=== PATIENT | female | born 1955 | race Caucasian/White ===

== ENCOUNTER → 2018-03-25 | Outpatient (CLI) | payer OTHER ==
[~2018-03-25] MED LIST: ALIGN4 MG PO; ALLEGRA PO; ASPIR 8181 MG PO; ATORVASTATIN CA10 MG PO; CALCIUM + D PO; DESONATE TOP; DETROL LA4 MG PO; LEVOTHYROXINE PO; LEVOTHYROXINE88 MCG PO; LOSARTAN POTASS25 MG PO; MAGNESIUM OXID400 MG PO; METRONIDAZOLE GEL TOP; MULTI-VITAMIN1 EACH PO; MUPIROCIN22 GM TOP; NEXIUM20 MG PO; NEXIUM40 MG PO; PANTOPRAZOLE SO40 MG PO; TOLTERODINE TART2 MG PO; VITAMIN D2000 UNIT PO; mvi PO; tylenol PO
--- NOTE | 2018-03-26 13:39 | Diagnostic Imaging Report ---
#[id number] - MGSCRBIL #BILATERAL DIGITAL SCREENING MAMMOGRAM WITH CAD: 03/25/2018 CLINICAL: Routine screening. Comparison is made to exams dated: 03/13/2017 mammogram and 02/29/2016 mammogram - [facility]. Current study contains 4 films. There are scattered fibroglandular elements in both breasts. Current study was also evaluated with a Computer Aided Detection (CAD) system. There are benign calcifications in both breasts. No significant masses, calcifications, or other findings are seen in either breast. There has been no significant interval change. IMPRESSION: BENIGN There is no mammographic evidence of malignancy. A 1 year screening mammogram is recommended. The patient will be notified by letter of the results. Ar steve/adrian:03/26/2018 08:00:50 Bindery Assistant: Monique HINES(R)(M), [facility] letter sent: Compared to Prior B9 Mammogram BI-RADS: 2 Benign
== END ==
LOC: MAMMO 09:02
PROVIDERS: ATTEND Internal Medicine
DX: Z12.31 Encounter for screening mammogram for malignant neoplasm of breast (principal)
CPT/HCPCS: 77067

== ENCOUNTER 2018-09-01 10:55 | Emergency (ER) | payer OTHER ==
[~2018-09-01] VITALS: Ht 160 cm; Wt 77.6 kg
--- OUTSIDE RECORDS SUMMARY | 2018-09-01 10:59 | XMS REPORT | Encounter Summary ---
Author Organization Unknown Address [address] [place] [address] Phone [phone] Care Team Providers Care Coffee Brewer Name Role Phone Keith Rolon MD 3 [phone] Reason for Visit Medical Complaint Instructions 1. Elevated blood pressure elevated blood pressure: care instructions 2. Impacted cerumen of bilateral ears ofloxacin 0.3 % ear drops earwax blockage: care instructions 3. On examination - pulse rate - bradycardia Discussion Note I provided /reviewed healthwise handout Plan of Care Patient Instructions Take prescription as prescribed and f/u with PCP if symptoms persist or worsens within 5-7 days. Reminders Provider Appointments None recorded. Lab None recorded. Referral None recorded. Procedures None recorded. Surgeries None recorded. Imaging None recorded. Medications Name Start Date Denisa-D 12 Hour 60 mg-120 mg tablet,extended release TK 1 T PO BID aspirin atorvastatin 10 mg tablet dicyclomine 10 mg capsule Flucelvax Quad 5860-0563 (PF) 60 mcg (15 mcg x 4)/0.5 mL IM syringe losartan 25 mg tablet metronidazole 0.75 % topical gel APPLY A THIN LAYER TO THE AFFECTED AREA(S) BY TOPICAL ROUTE 2 TIMES PER DAY IN THE MORNING AND EVENING Nexium 20 mg capsule,delayed release ofloxacin 0.3 % ear drops INSTILL 10 DROPS (1.5 MG) INTO AFFECTED EAR(S) BY OTIC ROUTE 2 TIMES PER DAY pantoprazole 40 mg tablet,delayed release Synthroid 88 mcg tablet tolterodine 2 mg tablet tolterodine ER 2 mg capsule,extended release 24 hr Medications Administered None recorded. Vitals Height Weight BMI Blood Pressure 5 ft 3 in 165 lbs 29.2 kg/m2 (1) 148/96 mm[Hg] (2) 152/98 mm[Hg] Lab Results None recorded. Allergies Code Code System Name Reaction Severity Status Onset 94349 RxNorm Lisinopril Active Novocain Active Problems Name Status Onset Date Source Impacted Cerumen Active Encounter Procedures Date Name Performed by Removal of Adenoids Information not available Tonsillectomy Information not available Vaccine List None recorded. Social History Smoking Status Never Smoker Past Encounters 06/29/2017 Elevated Blood Pressure; Impacted Cerumen of Bilateral Ears; On Examination - Pulse Rate - Bradycardia [facility]AP[facility]: [address] [facility] , [place] [address], Ph. History of Present Illness Ear Complaint Reported By: Patient HPI: Location: bilateral. Quality: ears feel full/plugged, muffled. Severity: intermittent. Duration: intermittent. Context: no sick contacts, no recent swimming/water in ear, no exposure to second hand smoke, no head trauma, not grinding teeth, no recent air travel. Modifying factors: does not hurt to lie on, or pull on ear, does not hurt to chew. Associated Symptoms: no discharge from the ears, no hear ing loss, no nose/sinus problems, no ringing in the ears, no fever, no chills, no earache, no dizziness, no vertigo, no headache, no muscle aches, popping noise in the ears Review of Systems:ROS as noted in the HPI Review of Systems Basic Reported By: Patient Physical Exam Adult Basic, Adult Female Complete Reported By: Patient Constitutional: General Appearance: healthy-appearing, well-nourished, well-developed. Level of Distress: NAD. Ambulation: ambulating normally Zay-Rpde-Qogkv-Throat: Ears: no lesions on external ear, no outer ear tenderness, EACs clear, TMs clear, EAC occluded with cerumen, cerumen removed to visualize TM Lungs: Respiratory effort: no dyspnea, no tachypnea, no use of accessory muscles, no intercostal retractions. Auscultation: breath sounds normal Cardiovascular: Heart Auscultation: RRR, no murmurs
--- OUTSIDE RECORDS SUMMARY | 2018-09-01 10:59 | XMS REPORT ---
Author Author [facility] Address Unknown Phone Unavailable Care Team Providers Care Cupola Hoist Operator Name Role Phone MUKESH PEÑA Unavailable Unavailable Problems This patient has no known problems. Allergies, Adverse Reactions, Alerts This patient has no known allergies or adverse reactions. Medications This patient has no known medications. Results Test Description Test Time Test Comments Text Results Atomic Results Result Comments MAMMOGRAPHY DIGITAL SCR BILAT 2018-03-25 09:49:00 [place] [address] Patient Name: KARIS ACE MR #: [id number] : 1955 Age/Sex: 62/F Req #: [id number] Adm Physician: Ordered by: MUKESH PEÑA MD Report #: [id number] Location: MAMMO Room/Bed: Procedure: MG/MAMMOGRAPHY DIGITAL SCR BILAT Exam Date: 03/25/18 Exam Time: 905 REPORT STATUS: Signed #[id number] - MGSCRBIL #BILATERAL DIGITAL SCREENING MAMMOGRAM WITH CAD: 03/25/2018 CLINICAL: Routine screening. Comparison is made to exams dated: 03/13/2017 mammogram and 02/29/2016 mammogram - [facility]. Current study contains 4 films. There are scattered fibroglandular elements in both breasts. Current study was also evaluated with a Computer Aided Detection (CAD) system. There are benign calcifications in both breasts. No significant masses, calcifications, or other findings are seen in either breast. There has been no significant interval change. IMPRESSION: BENIGN There is no mammographic evidence of malignancy. A 1 year screening mammogram is recommended. The patient will be notified by letter of the results. Stacy steve/adrian:03/26/2018 08:00:50 Photograph Enlarger: Monique ESPINAL)(Gabrielle), [facility] letter sent: Compared to Prior B9 Mammogram BI-RADS: 2 Benign Dictated By: STACY SMITH DO 08 Transcribed By: ADRIAN on 03/26/18 08 COPY TO: MUKESH PEÑA MD MAMMOGRAPHY DIGITAL SCR BILAT [place] [address] Patient Name: KARIS ACE MR #: [id number] : 1955 Age/Sex: 61/F Req #: [id number] [facility] Physician: Ordered by: MUKESH PEÑA MD Report #: [id number] Location: MAMMO Room/Bed: Procedure: MG/MAMMOGRAPHY DIGITAL SCR BILAT Exam Date: 03/13/17 Exam Time: 1011 REPORT STATUS: Signed #[id number] - MGSCRBIL #BILATERAL DIGITAL SCREENING MAMMOGRAM WITH CAD: 03/13/2017 CLINICAL: Routine screening. Comparison is made to exams dated: 02/29/2016 mammogram, 02/25/2015 mammogram and 02/22/2014 mammogram - [facility]. Current study contains 4 films. There are scattered fibroglandular elements in both breasts. Current study was also evaluated with a Computer Aided Detection (CAD) system. There are benign calcifications in both breasts. No significant masses, calcifications, or other findings are seen in either breast. There has been no significant interval change. IMPRESSION: BENIGN There is no mammographic evidence of malignancy. A 1 year screening mammogram is recommended. The patient will be notified by letter of the results. Stacy steve/adrian:03/20/2017 08:15:29 Photograph Enlarger: Monique HINES(R)(M), [facility] letter sent: Compared to Prior B9 Mammogram BI-RADS: 2 Benign Dictated By: STACY SMITH DO 4 Transcribed By: ADRIAN on 03/20/17814 COPY TO: MUKESH PEÑA MD
--- OUTSIDE RECORDS SUMMARY | 2018-09-01 10:59 | XMS REPORT | Continuity of Care Document ---
Author Author [facility] Interface Address Unknown Phone Unavailable Problems Problem Status Onset Date Classification Date Reported Comments Source Elevated blood pressure 06/29/2017 Diagnosis 06/29/2017 [facility] Impacted cerumen of bilateral ears 06/29/2017 Diagnosis 06/29/2017 [facility] On examination - pulse rate - bradycardia 06/29/2017 Diagnosis 06/29/2017 [facility] Impacted Cerumen Problem 06/29/2017 [facility] Medications Medication Details Route Status Patient Instructions Ordering Provider Order Date Source 12 HR Fexofenadine hydrochloride 60 MG / Pseudoephedrine Hydrochloride 120 MG Extended Release Oral Tablet [Denisa-D] Denisa-D 12 Hour 60 mg- 120 mg tablet,extended release TK 1 T PO BID Active [facility] aspirin aspirin Active [facility] atorvastatin 10 MG Oral Tablet atorvastatin 10 mg tablet Active [facility] Dicyclomine Hydrochloride 10 MG Oral Capsule dicyclomine 10 mg capsule Active [facility] 0.5 ML influenza A virus A/ (H1N1) antigen 0.03 MG/ML / influenza A virus A/ (H3N2) antigen 0.03 MG/ML / influenza B virus B/ antigen 0.03 MG/ML / influenza B virus B/ antigen 0.03 MG/ML Prefilled Syringe [Flucelvax Quadrivalent 5459-5928] Flucelvax Quad 4261-2361 (PF) 60 mcg (15 mcg x 4)/0.5 mL IM syringe Active [facility] Losartan Potassium 25 MG Oral Tablet losartan 25 mg tablet Active [facility] Metronidazole 0.0075 MG/MG Topical Gel metronidazole 0.75 % topical gel APPLY A THIN LAYER TO THE AFFECTED AREA(S) BY TOPICAL ROUTE 2 TIMES PER DAY IN THE MORNING AND EVENING Active [facility] Esomeprazole 20 MG Delayed Release Oral Capsule [Nexium] Nexium 20 mg capsule,delayed release Active [facility] Ofloxacin 3 MG/ML Otic Solution ofloxacin 0.3 % ear drops INSTILL 10 DROPS (1.5 MG) INTO AFFECTED EAR(S) BY OTIC ROUTE 2 TIMES PER DAY Active [facility] pantoprazole 40 MG Delayed Release Oral Tablet pantoprazole 40 mg tablet,delayed release Active [facility] Levothyroxine Sodium 0.088 MG Oral Tablet [Synthroid] Synthroid 88 mcg tablet Active [facility] tolterodine tartrate 2 MG Oral Tablet tolterodine 2 mg tablet Active [facility] 24 HR tolterodine tartrate 2 MG Extended Release Oral Capsule tolterodine ER 2 mg capsule,extended release 24 hr Active [facility] Allergies, Adverse Reactions, Alerts Substance Category Reaction Severity Reaction type Status Date Reported Comments Source Lisinopril Allergy to substance 03/04/2014 [facility] Novocain Allergy to substance 03/04/2014 [facility] Immunizations Immunization Date Given Site Status Last Updated Comments Source Results Order Name Results Value Reference Range Date Interpretation Comments Source Vital Signs Vital Sign Value Date Comments Source Diastolic (mm Hg) 98 06/29/2017 [facility] Height 63 06/29/2017 [facility] Systolic (mm Hg) 152 06/29/2017 [facility] Weight 165 06/29/2017 [facility] Encounters Location Location Details Encounter Type Encounter Number Reason For Visit Attending Provider ADM Date DC Date Status Source CO - [id number]_CfgbublrHeri Dykes, [address] AW[address]: [address] [facility] [place] [address], Ph. [id number] Keith Dykes 06/29/2017 [facility] Procedures Procedure Code Date Perfomer Comments Source Removal of Adenoids 67869 [facility] Tonsillectomy [facility]
[2018-09-01] MEDS ORDERED: TETANUS/DIPHTHERIA TOX ADULT 0.5 ML SYR IM ONE (12:15)
--- NOTE | 2018-09-01 12:24 | NUR ---
PT RESTING, VITAL SIGNS STABLE, PT VOICES NO COMPLAINTS AT THIS TIME.
--- NOTE | 2018-09-01 12:33 | Diagnostic Imaging Report ---
Exam: Right ankle and foot 3 views each History: Pain Comparison: None. Findings: Transverse fracture of the distal fibula below the plafond without significant displacement. Transverse fracture of the fifth metatarsal base with no displacement. Soft tissue swelling. Impression: Ankle inversion injury with transverse fracture of the distal fibular tip and transverse fracture of the fifth metatarsal base, nondisplaced. Signed by: Dr. Sampson Wynne M.D. on 09/01/2018 12:29 PM
[2018-09-01] MEDS ORDERED: KETOROLAC TROME10 MG PO (13:12)
[2018-09-01 13:40] VITALS: BP 139/69
--- NOTE | 2018-09-01 13:47 | NUR ---
PT PLACED IN WALKING BOOT, WALKER TRAINING PT VERBALIZES UNDERSTANDING
== END 2018-09-01 13:43 | disposition home or self-care (01) ==
LOC: FSED 10:55
DX: S82.61XA Displaced fracture of lateral malleolus of right fibula, initial encounter for closed fracture (principal); S92.354A Nondisplaced fracture of fifth metatarsal bone, right foot, initial encounter for closed fracture; W19.XXXA Unspecified fall, initial encounter; Y92.488 Other paved roadways as the place of occurrence of the external cause; Z23 Encounter for immunization
CPT/HCPCS: 90714; 99283

== ENCOUNTER → 2019-03-26 | Outpatient (CLI) | payer OTHER ==
[~2019-03-26] MED LIST changes: +KETOROLAC TROME10 MG PO
== END ==
LOC: MAMMO 08:34
PROVIDERS: ATTEND Internal Medicine
DX: Z12.31 Encounter for screening mammogram for malignant neoplasm of breast (principal)
CPT/HCPCS: 77067

== ENCOUNTER → 2020-01-01 | Day surgery (SDC) | payer MEDICARE, OTHER ==
[2019-12-29 10:49] LABS: BASOPHILS # (AUTO) 0.1 (0.0-0.1); BASOPHILS % 1.6 % (0.0-1.0); EOSINOPHILS # (AUTO) 0.2 (0.0-0.4); EOSINOPHILS % 2.3 % (0.0-6.0); HEMATOCRIT 38.2 % (34.2-44.1); HEMOGLOBIN 12.1 g/dL (12.0-16.0); LYMPHOCYTES % 31.3 % (18.0-39.1); MEAN CORPUSCULAR HEMOGLOBIN 30.6 pg (28-32); MEAN CORPUSCULAR HGB CONC 31.7 g/dL (31-35); MEAN CORPUSCULAR VOLUME 96.5 fL (81-99); MONOCYTES # (AUTO) 0.5 (0.2-0.8); MONOCYTES % 7.3 % (4.4-11.3); NEUTROPHILS # (AUTO) 3.7 (2.1-6.9); NEUTROPHILS % 57.3 % (38.7-80.0); PLATELET COUNT 195 x10e3/uL (140-360); RED BLOOD COUNT 3.96 x10e6/uL (3.6-5.1); RED CELL DISTRIBUTION WIDTH 12.9 % (11.7-14.4)
[~2020-01-01] MED LIST changes: +BYSTOLIC10 MG PO; +COLESTIPOL HCL1 GM PO; +FENTANYL CITRATE/PF 100MCG/2 ML INJ ONE; +HYOSCYAMINE 0.125 MG TAB ONE; +KETAMINE HCL INJ 50 MG/ML 10 ML VIAL ONE; +MIDAZOLAM HCL 2 MG/2 ML VIAL ONE; +ONDASTERON PO; +OXYBUTYNIN CHLOR5 M1 PO; +PEPCID20 MG PO; +PROPOFOL IV EMULSION 10 MG/ML 20 ML VIAL ONE; +SYNTHROID88 MCG PO; +VSL#3 CAPSULE1 EACH PO; +XIFAXAN550 MG PO
[2020-01-01 17:10] VITALS: BP 137/81
[2020-01-01 19:05] LABS: WBC,FECAL (FECAL LACTOFERRIN) NEGATIVE (NEGATIVE)
--- NOTE | 2020-01-01 19:26 | Operative Report ---
DATE OF PROCEDURE: 01/01/2020 SURGEON: Sheldon Good MD PROCEDURE: Colonoscopy with polypectomy and biopsies. INDICATIONS FOR COLONOSCOPY: Surveillance colonoscopy, personal history of colon polyps, intermittent diarrhea. MEDICATIONS: The patient was done under MAC, please see anesthesiologist's note. PROCEDURE IN DETAIL: With the patient in left lateral decubitus position, a flexible fiberoptic Olympus colonoscope was inserted into the rectum with ease and advanced all the way to the cecum with some difficulty. Colon was excessively tortuous and spastic, and negotiated with some difficulty; it was suboptimally visualized. The scope was then withdrawn slowly. Mucosa overlying the cecum appeared to be within normal limits. The ileocecal valve was intubated and biopsies were obtained from the terminal ileum. The scope was then withdrawn back into the colon; it was then withdrawn slowly, mucosa overlying the ascending and the transverse grossly appeared to be within normal limits. Some patchy mild inflammatory changes were noted in the left colon as well as the rectum in the left colon only, and multiple random biopsies were obtained. One polyp was hot biopsied from the rectum. The scope was then retroflexed into the distal rectum. Small internal hemorrhoids were noted, none of which was actively bleeding. The scope was then straightened out, it was subsequently withdrawn. The patient tolerated the procedure well. IMPRESSION: 1. Colon excessively tortuous and spastic, suboptimally visualized. 2. Mild patchy left-sided colitis. 3. Rectal polyp, hot biopsied. 4. Internal hemorrhoids, none actively bleeding. PLAN: 1. Follow up histology. 2. Follow up stool studies. 3. Initiate Bentyl 10 mg one p.o. t.i.d. 4. Increase VSL #3 to one p.o. b.i.d. 5. The patient might benefit from a followup colonoscopy in 3 to 5 years. Sheldon Good MD [facility] [place]/MODL /[id number] cc: Keith Rolon MD
[2020-01-02 15:14] LABS: C DIFFICILE TOXIN A&B AMP PROB NEGATIVE (NEGATIVE)
== END | disposition home or self-care (01) ==
LOC: OR 11:20
PROVIDERS: ATTEND Internal Medicine Gastroenterology
DX: K51.50 Left sided colitis without complications (principal); Z86.010 Personal history of colon polyps; K62.1 Rectal polyp; K59.09 Other constipation; K64.8 Other hemorrhoids; K29.70 Gastritis, unspecified, without bleeding; K20.8 Other esophagitis; K21.9 Gastro-esophageal reflux disease without esophagitis; I10 Essential (primary) hypertension; L71.9 Rosacea, unspecified; M06.9 Rheumatoid arthritis, unspecified; E78.5 Hyperlipidemia, unspecified; R01.1 Cardiac murmur, unspecified; E06.3 Autoimmune thyroiditis; K76.0 Fatty (change of) liver, not elsewhere classified; K44.9 Diaphragmatic hernia without obstruction or gangrene; R00.1 Bradycardia, unspecified; F32.9 Major depressive disorder, single episode, unspecified; Z88.4 Allergy status to anesthetic agent; Z88.8 Allergy status to other drugs, medicaments and biological substances; Z01.810 Encounter for preprocedural cardiovascular examination; Z01.812 Encounter for preprocedural laboratory examination; Z11.59 Encounter for screening for other viral diseases; Z79.82 Long term (current) use of aspirin
CPT/HCPCS: 36415; 45380; 45384; 83630; 83993; 85025; 87045; 87177; 87328; 87493; 87635; 93005; J2250; J2704; J3010

== ENCOUNTER → 2020-03-28 | Outpatient (CLI) | payer MEDICARE ==
[~2020-03-28] MED LIST changes: -FENTANYL CITRATE/PF 100MCG/2 ML INJ ONE; -HYOSCYAMINE 0.125 MG TAB ONE; -KETAMINE HCL INJ 50 MG/ML 10 ML VIAL ONE; -MIDAZOLAM HCL 2 MG/2 ML VIAL ONE; -PROPOFOL IV EMULSION 10 MG/ML 20 ML VIAL ONE
== END ==
LOC: MAMMO 09:13
PROVIDERS: ATTEND Internal Medicine
DX: Z12.31 Encounter for screening mammogram for malignant neoplasm of breast (principal)
CPT/HCPCS: 77067

== ENCOUNTER → 2020-06-17 | Outpatient (CLI) | payer MEDICARE | LOC: US 12:52 | PROVIDERS: ATTEND Internal Medicine | DX: E04.9 Nontoxic goiter, unspecified (principal) | CPT/HCPCS: 76536 ==

== ENCOUNTER → 2021-04-03 | Outpatient (CLI) | payer MEDICARE | LOC: MAMMO 12:32 | PROVIDERS: ATTEND Internal Medicine | DX: Z12.31 Encounter for screening mammogram for malignant neoplasm of breast (principal) | CPT/HCPCS: 77067 ==

== ENCOUNTER → 2021-06-19 | Outpatient (CLI) | payer MEDICARE | LOC: DX 10:41 | PROVIDERS: ATTEND Internal Medicine | DX: M85.88 Other specified disorders of bone density and structure, other site (principal); Z78.0 Asymptomatic menopausal state | CPT/HCPCS: 77080 ==

== ENCOUNTER → 2022-04-05 | Outpatient (CLI) | payer MEDICARE ==
[~2022-04-05] MED LIST changes: +ENEMA READY-TO133 ML PR; +GOLYTELY SOLU4000 M1 PO
== END ==
LOC: MAMMO 12:44
PROVIDERS: ATTEND Internal Medicine
DX: Z12.31 Encounter for screening mammogram for malignant neoplasm of breast (principal)
CPT/HCPCS: 77067

== ENCOUNTER → 2024-04-09 | Outpatient (REF) | payer MEDICARE | LOC: MAMMO 12:26 | PROVIDERS: ATTEND Internal Medicine | DX: Z12.31 Encounter for screening mammogram for malignant neoplasm of breast (principal) | CPT/HCPCS: 77067 ==

== ENCOUNTER → 2024-11-23 | Outpatient (REF) | payer MEDICARE ==
[~2024-11-23] MED LIST changes: +ALIGN4 MG; +FENTANYL CITRATE/PF 100MCG/2 ML INJ ONE; +HYOSCYAMINE SULFATE 0.5 MG/ML INJ ONE; +LIDOCAINE HCL 2% LOCAL INJ 5 ML SDV VIAL INJ ONE; +MIRALAX17 GM PO; +ONDANSETRON HCL INJ 2MG/ML 2ML 2 MG/ML VIAL ONE; +PROPOFOL IV EMULSION 0 ML IV ONE
[2024-11-23 13:12] LABS: BASOPHILS # (AUTO) 0.1 (0.0-0.1); BASOPHILS % 1.3 % (0.0-1.0); EOSINOPHILS # (AUTO) 0.1 (0.0-0.4); EOSINOPHILS % 2.2 % (0.0-6.0); HEMATOCRIT 37.4 % (34.2-44.1); HEMOGLOBIN 12.4 g/dL (12.0-16.0); LYMPHOCYTES # (AUTO) 2.1 (1.0-3.2); LYMPHOCYTES % 38.9 % (18.0-39.1); MEAN CORPUSCULAR HEMOGLOBIN 32.5 pg (28-32); MEAN CORPUSCULAR HGB CONC 33.2 g/dL (31-35); MEAN CORPUSCULAR VOLUME 98.2 fL (81-99); MONOCYTES # (AUTO) 0.4 (0.2-0.8); MONOCYTES % 7.3 % (4.4-11.3); NEUTROPHILS # (AUTO) 2.7 (2.1-6.9); NEUTROPHILS % 49.9 % (38.7-80.0); PLATELET COUNT 205 x10e3/uL (140-360); RED BLOOD COUNT 3.81 x10e6/uL (3.6-5.1); RED CELL DISTRIBUTION WIDTH 12.9 % (11.7-14.4); WHITE BLOOD COUNT 5.45 x10e3/uL (4.8-10.8)
== END ==
LOC: RAD 12:30 → EDSTATUS 12-03 12:00
PROVIDERS: ATTEND Internal Medicine Gastroenterology
DX: Z01.818 Encounter for other preprocedural examination (principal); Z86.0100 Personal history of colon polyps, unspecified
CPT/HCPCS: 36415; 85025; 93005; J1980; J2003; J2405

== ENCOUNTER → 2025-01-26 | Day surgery (SDC) | payer MEDICARE ==
[2025-01-22 11:17] LABS: BASOPHILS % 1.1 % (0.0-1.0); EOSINOPHILS % 2.1 % (0.0-6.0); LYMPHOCYTES % 31.7 % (18.0-39.1); MONOCYTES % 8.9 % (4.4-11.3); NEUTROPHILS % 56.2 % (38.7-80.0); RED CELL DISTRIBUTION WIDTH 12.5 % (11.7-14.4)
[~2025-01-26] MED LIST changes: -FENTANYL CITRATE/PF 100MCG/2 ML INJ ONE; +GLUCAGON FOR INJ 1 MG VIAL ONE; +ONDANSETRON HCL 4 MG ORAL DISINTEGRATING TAB ONE; -PROPOFOL IV EMULSION 0 ML IV ONE; +PROPOFOL IV EMULSION 10 MG/ML 20 ML VIAL ONE; +PROPOFOL IV EMULSION 50 ML IV ONE
[2025-01-26] MEDS: LACTATED RINGER'S 1,000 ML ONE (11:00)
[2025-01-26 13:13] VITALS: TEMP 97
[2025-01-26 13:35] VITALS: BP 136/80; PULSE 91; RESP 18; O2SAT 99
[2025-01-26] MEDS: ONDANSETRON HCL 4 MG ORAL DISINTEGRATING TAB SL ONE (13:50)
== END | disposition home or self-care (01) ==
LOC: OR 10:35
PROVIDERS: ATTEND Internal Medicine Gastroenterology
DX: D12.8 Benign neoplasm of rectum (principal); Q43.8 Other specified congenital malformations of intestine; K64.8 Other hemorrhoids; I10 Essential (primary) hypertension; K21.9 Gastro-esophageal reflux disease without esophagitis; E78.00 Pure hypercholesterolemia, unspecified; E06.3 Autoimmune thyroiditis; M19.90 Unspecified osteoarthritis, unspecified site; Z79.82 Long term (current) use of aspirin; Z79.899 Other long term (current) drug therapy; Z79.890 Hormone replacement therapy; Z88.4 Allergy status to anesthetic agent; Z88.8 Allergy status to other drugs, medicaments and biological substances; Z01.812 Encounter for preprocedural laboratory examination
CPT/HCPCS: 36415; 45385; 85025; J1610; J1980; J2003; J2405; J2704 ×2; J7121; Q0162; 45380

== ENCOUNTER → 2025-04-12 | Outpatient (REF) | payer MEDICARE ==
[~2025-04-12] MED LIST changes: -GLUCAGON FOR INJ 1 MG VIAL ONE; -HYOSCYAMINE SULFATE 0.5 MG/ML INJ ONE; -LIDOCAINE HCL 2% LOCAL INJ 5 ML SDV VIAL INJ ONE; -ONDANSETRON HCL 4 MG ORAL DISINTEGRATING TAB ONE; -ONDANSETRON HCL INJ 2MG/ML 2ML 2 MG/ML VIAL ONE; -PROPOFOL IV EMULSION 10 MG/ML 20 ML VIAL ONE; -PROPOFOL IV EMULSION 50 ML IV ONE
== END ==
LOC: MAMMO 10:06
PROVIDERS: ATTEND Internal Medicine
DX: Z12.31 Encounter for screening mammogram for malignant neoplasm of breast (principal)
CPT/HCPCS: 77067